=== PATIENT | female | born 1950 | race Caucasian/White ===

== ENCOUNTER 2018-02-20 20:04 | Emergency (ER) | payer MEDICARE ==
[2018-02-20 23:45] VITALS: BP 110/61
--- NOTE | 2018-02-21 02:30 | ED ---
Elina Pickard Gabriel, scribed for Dakota Cotton MD on 02/20/18 at 2302 . Lower Extremity - HPI Summary HPI Summary: This patient is a 67 year old F presenting to [facility] [place] accompanied by her daughter with a chief complaint of right popliteal pain that radiates into her right calf that began 2 days ago. Pt was seen at and sent here for further evaluation. The patient rates the pain 8/10 in severity. Pt broken her right patella a year ago and she still has chronic pain. - History of Current Complaint Chief Complaint: EDExtremityLower Stated Complaint: RT LEG PAIN Time Seen by Provider: 02/20/18 22:53 Hx Obtained From: Patient Onset of Pain: Days Onset/Duration: Days - 2 Severity Initially: Severe Severity Currently: Severe Pain Intensity: 8 Pain Scale Used: 0-10 Numeric Timing: Constant Associated Signs And Symptoms: Positive: Negative - fever, Other - right pain in back of knee and right calf Able to Bear Weight: Yes - Allergies/Home Medications Allergies/Adverse Reactions: Allergies Allergy/AdvReac Type Severity Reaction Status Date / Time No Known Allergies Allergy Verified 05/19/13 09:06 PMH/Surg Hx/FS Hx/Imm Hx Endocrine/Hematology History: Denies: Hx Sickle Cell Disease Cardiovascular History: Reports: Hx Hypercholesterolemia Denies: Other Cardiovascular Problems/Disorders Respiratory History: Denies: Hx Chronic Obstructive Pulmonary Disease (COPD) GI History: Reports: Hx Gastroesophageal Reflux Disease - HAS MEDICATION, Other GI Disorders - PROBLEMS "CAN'T SWALLOW" HAS HAD IT STRETCHED History: Denies: Other Problems/Disorders Musculoskeletal History: Reports: Hx Arthritis - SPINE Sensory History: Reports: Hx Cataracts - RIGHT EYE, LEFT EYE REMOVED Denies: Hx Contacts or Glasses, Hx Hearing Aid Opthamlomology History: Reports: Hx Cataracts - RIGHT EYE, LEFT EYE REMOVED Denies: Hx Contacts or Glasses Neurological History: Denies: Other Neuro Impairments/Disorders - Cancer History Hx Chemotherapy: No Hx Radiation Therapy: No - Surgical History Surgery Procedure, Year, and Place: LEFT EYE - [place] [facility] [place] [facility] Hx Anesthesia Reactions: No Infectious Disease History: No Infectious Disease History: Denies: Traveled Outside the [place] in Last 30 Days - Family History Known Family History: Positive: Hypertension Negative: Diabetes - Social History Lives: With Family Alcohol Use: None Substance Use Type: Reports: None Smoking Status (MU): Never Smoked Tobacco Review of Systems Negative: Fever Positive: Other - right popliteal pain and right calf pain All Other Systems Reviewed And Are Negative: Yes Physical Exam - Summary Physical Exam Summary: Appearance: Well appearing, no pain distress Skin: warm, dry, reflects adequate perfusion, color is good Head/face: normal Eyes: EOMI, STEPHANIA ENT: normal Neck: supple, non-tender Respiratory: CTA, breath sounds present Cardiovascular: RRR, pulses symmetrical Abdomen: non-tender, soft Bowel Sounds: present Musculoskeletal: normal, strength/ROM intact, No LE edema, no palpable cysts Neuro: normal, sensory motor intact, A&Ox3 Triage Information Reviewed: Yes Vital Signs On Initial Exam: Initial Vitals Temp Pulse Resp BP Pulse Ox 97.7 F 66 20 85/64 95 02/20/18 20:06 02/20/18 20:06 02/20/18 20:06 02/20/18 20:06 02/20/18 20:06 Vital Signs Reviewed: Yes Diagnostics - Vital Signs Vital Signs Temp Pulse Resp BP Pulse Ox 02/20/18 22:39 98.1 F 84 20 96/63 97 02/20/18 20:06 97.7 F 66 20 85/64 95 - Laboratory Lab Statement: Any lab studies that have been ordered have been reviewed, and results considered in the medical decision making process. - Additional Comments Diagnostic Additional Comments: Venous Doppler study reveals, per radiologist, no DVT, Bakers cyst right popliteal fossa. ED physician has reviewed this report. Re-Evaluation - Re-Evaluation First Eval Re-Evaluation Time: 23:05 Change: Unchanged Comment: I discussed test results with the patient. Lower Extremity Course/Dx - Course Course Of Treatment: vasc exam neg for DVT but + for Bakers cyst. ALMA ROSA applied. Sees pain managment. - Diagnoses Differential Diagnosis/HQI/PQRI: Positive: Arthritis, Bursitis, DVT, Phlebitis Provider Diagnoses: Garcia's cyst Discharge - Sign-Out/Discharge Documenting (check all that apply): Discharge - Discharge Plan Condition: Good Disposition: HOME Patient Education Materials: Bakers Cyst (ED) Referrals: Mayelin Reed [Primary Care Provider] - You Miller MD [Medical Doctor] - Additional Instructions: ice, elevate, alma rosa wrap for comfort. Return if worse, new symptoms or other concerns. - Billing Disposition and Condition Condition: GOOD Disposition: HOME The documentation as recorded by the Elina sosa Gabriel accurately reflects the service I personally performed and the decisions made by me, Dakota Cotton MD.
--- NOTE | 2018-02-21 07:38 | RAD ---
INDICATION: Right lower extremity edema. COMPARISON: There are no prior studies available for comparison. TECHNIQUE: Multiple real-time, color flow and Doppler tracings of the right lower extremity were obtained. FINDINGS: The common femoral, femoral, profunda femoral and popliteal veins all demonstrate normal compressibility, augmentation with compression and phasic response with respiration. The posterior tibial and peroneal veins demonstrate normal compressibility and augmentation with compression. There is a fluid collection in the right popliteal fossa measuring 3.7 x 1.0 x 1.4 cm. IMPRESSION: 1. NO EVIDENCE FOR DEEP VENOUS THROMBOSIS. 2. SMALL BAKERS CYST.
== END 2018-02-20 23:45 | disposition home or self-care (01) ==
LOC: ED 20:04
DX: M71.21 Synovial cyst of popliteal space [Baker], right knee (principal); E78.00 Pure hypercholesterolemia, unspecified; K21.9 Gastro-esophageal reflux disease without esophagitis
CPT/HCPCS: 99283